=== PATIENT | male | born 1935 | race Caucasian/White ===

== ENCOUNTER 2018-03-15 17:06 | Inpatient (IN) | payer MEDICARE, BC ==
[2018-03-15 20:36] VITALS: BMI 26.9
[2018-03-15] MEDS ORDERED: Mag-Al 1200 mg/1200 mg/30 ML UDCUP PO PRN (20:55)
[2018-03-15] MEDS ORDERED: Acetaminophen 325 MG TAB PO PRN (20:55)
[2018-03-15] MEDS ORDERED: hydrALAZINE 20 MG/ML VIAL SLOW IVP PRN (20:55)
[2018-03-15] MEDS ORDERED: Benzonatate 100 MG CAP PO PRN (20:55)
[2018-03-15] MEDS: cefTRIAXone\\ROCEPHIN 1 GM in Sodium Chloride 0.9% 100 ML IVPB SCH (21:53)
[2018-03-15] MEDS: Azithromycin 500 MG in Sodium Chloride 0.9% 250 ML 250 ML IVPB SCH (22:10)
[2018-03-16 05:17] LABS: #Eosinphils 0.1 thou/uL (0.0-0.7); #Lymphocytes 0.7 thou/uL (1.20-3.40); #Monocytes 1.1 thou/uL (0.11-0.59); #Neutrophils 5.8 thou/uL (1.40-6.50); %Basophils 0.1 % (0.0-1.0); %Eosinophils 1.3 % (0.0-10.0); %Lymphocytes 8.9 % (21.0-51.0); %Monocytes 14.5 % (0.0-10.0); %Neutrophils 75.2 % (42.0-75.0); Hemoglobin 12.8 g/dL (14.0-18.0); Mean Corpuscular HGB CONC 34.1 g/dL (32.0-36.0); Mean Corpuscular Volume 96.9 fL (78.0-98.0); Mean Platelet Volume 8.7 fL (7.4-10.4); Platelet Count 151 thou/uL (130-400); RBC Distribution Width 12.7 % (11.5-14.5); Red Blood Cell (RBC) Count 3.86 mill/uL (4.70-6.10); White Blood Cell (WBC) Count 7.7 thou/uL (4.8-10.8)
[2018-03-16 05:32] LABS: Anion Gap 11 mmol/L (10-20); BUN (Urea Nitrogen) 19 mg/dL (8.4-25.7); Calc. Creatinine Clearance 93 mL/min (70-130); Calcium 9.1 mg/dL (7.8-10.44); Carbon Dioxide 23 mmol/L (23-31); Chloride 105 mmol/L (98-107); Estimated GFR-MDRD 87; Glucose 110 mg/dL (83-110); Potassium 3.5 mmol/L (3.5-5.1); Sodium 135 mmol/L (136-145)
[2018-03-16] MEDS: Levothyroxine Sodium 88 MCG TAB PO SCH (05:34)
--- NOTE | 2018-03-16 07:19 | HP ---
PRIMARY CARE PHYSICIAN: Dr. Ruth Ann Varghese. CHIEF COMPLAINT: Transfer for pneumonia. HISTORY OF PRESENT ILLNESS: Mr. Sanabria is a very pleasant 83-year-old gentleman that has a history of coronary artery disease. Also, has a history of BPH and a remote history of prostate cancer. He was in his usual state of health until several days ago he began having complaints of nausea, vomiti ng, and diarrhea. He also had a poor appetite and was feeling weak. He has a welfare eligibility interviewer, who general ly visits him daily and noticed that he looked a bit droopy and weak and basically could barely get a round without assistance. She was concerned and brought him to the emergency room in [place]. Ther e, he was evaluated and had a CT scan of the abdomen and pelvis. It was noted that there was no sign ificant intra-abdominal findings, but he had some findings of ground-glass infiltrate in the left low er lobe and was admitted for pneumonia. He was being treated there when it was noted that he became hypotensive as well as more hypoxic. His lactic acid was elevated at 3.3 and as a result there was c oncern that he was developing sepsis as a result of the pneumonia and he was [place] [facility]. Prior to transfer, he was given IV fluids and supplemental oxygen. Hi s blood pressure has since improved some, and the patient says that symptomatically he is actually fe eling better. REVIEW OF SYSTEMS: All systems are reviewed and are negative except for that mentioned in the histor y of present illness. PAST MEDICAL HISTORY: Significant for coronary artery disease, BPH, prostate cancer, and abdominal a ortic aneurysm. PAST SURGICAL HISTORY: He has had bypass surgery, prostate surgery, lumbar surgery, carpal tunnel frias rgery, and a cholecystectomy. ALLERGIES: PENICILLIN, which causes a rash. SOCIAL HISTORY: He is single. No children. His surrogate decision maker and medical power of attor vannessa is Talisha Varela. His code status is DNR. He is a former smoker, he quit in 1980. He smoke d for a total of about 50 years. He denies any alcohol use. FAMILY HISTORY: Significant for colon cancer in a sister and brother. Mother lived to be 96. Fathe r lived to be 89. CURRENT MEDICATIONS: Include atenolol 25 mg daily, levothyroxine 88 mcg daily, fenofibrate 150 mg da jonathan, aspirin 81 mg daily, fish oil 1200 mg daily, glucosamine 1500 mg daily, calcium 600 mg daily, B1 2, turmeric, and vitamin D. PHYSICAL EXAMINATION: GENERAL: He is alert and oriented. He appears to be in no acute distress. RECENT VITAL SIGNS: Blood pressure was 135/68, heart rate is around 86, respiratory rate of 16, and temperature is 99.6. HEENT: His pupils are equal, round, and reactive. Extraocular muscles are intact. Sclerae are anic teric. Throat: There is no erythema, no exudates. NECK: No adenopathy, no bruits. LUNGS: He has got some rales at the left base, very fine, almost inaudible, good breath sounds throu ghout. There was no wheezing or rhonchi. CARDIOVASCULAR: He has a normal S1 and S2. There is no S3 or S4. No murmurs, clicks, no rubs. ABDOMEN: Obese, it is soft, nontender, nondistended. Positive for bowel sounds. There is no reboun d or guarding. EXTREMITIES: He has got trace edema. There is no calf tenderness. There is no erythema. He has go t palpable dorsalis pedis pulses bilaterally. NEUROLOGIC: The exam is nonfocal. His muscle strength is 5/5 in both his upper and lower extremitie s. SKIN AND INTEGUMENT: There was no skin changes. No rash. LABORATORY DATA: Laboratory results were reviewed. His white blood cell count 11.3, hemoglobin 13.8 , hematocrit was 41.5, platelet count was 117. Sodium 131, potassium 4.1, CO2 is 17, BUN of 25, crea tinine 1.43, and glucose is 158. Lactic acid was 3.3, total bilirubin was 1.7. He had EKG by my drew frost is sinus rhythm, the rate was [address] wave changes. He had a chest x-ray to day and by my reading, he had some changes consistent with COPD with some hyperinflation and he did h ave some airspace density in the left base. There was no pleural effusion. ASSESSMENT: 1. This is a pleasant 83-year-old gentleman, who was admitted for pneumonia and transferred for our facility due to concerns for sepsis. He will be admitted to Telemetry. We will continue IV Rocephin and azithromycin. We will also continue gentle hydration as there is no known history of congestive heart failure and his proBNP was actually normal. We will likely repeat a chest x-ray in a couple o f days to assess for any significant radiographic changes such as an effusion. He will be placed on deep venous thrombosis prophylaxis. 2. Coronary artery disease. This appears to be clinically stable. He is on atenolol and aspirin, w hich will be continued. 3. Hypothyroidism. We will continue levothyroxine as previously ordered. 4. Benign prostatic hypertrophy and history of prostate cancer. We will monitor for signs of urinar y retention, which at this point is not evident.
[2018-03-16] MEDS: Enoxaparin Sodium 30 MG/0.3 ML SYRINGE SC SCH (08:59)
[2018-03-16] MEDS: Calcium Carbonate 600 MG TAB PO SCH (09:00)
[2018-03-16] MEDS: Atenolol 25 MG TAB PO SCH (09:00)
--- NOTE | 2018-03-16 10:42 | PDOC.PN ---
- Subjective Encounter Start Date: 03/16/18 Encounter Start Time: 10:40 Mr. Sanabria was seen today in follow-up of Pneumonia with sepsis. He says he feels better. He rested ok last night. He was able to eat all of his breakfast without any nausea. He has not had any diarrhea this morning. - Objective Resuscitation Status: Resuscitation Status DNR:Do Not Resuscitate MAR Reviewed: Yes Vital Signs & Weight: Vital Signs (12 hours) Temp Pulse Resp BP BP Pulse Ox 03/16/18 09:00 63 120/58 L 03/16/18 07:10 98.3 F 63 14 120/58 L 95 03/16/18 03:15 98 F 80 18 118/61 95 03/16/18 00:22 98.2 F 78 14 132/60 94 L Weight Weight 221 lb Result Diagrams: 03/16/18 04:49 03/16/18 04:49 Phys Exam - Physical Examination HEENT: PERRLA Respiratory: no wheezing, no rhonchi +rales at the left base, good air movement Cardiovascular: RRR, no significant murmur, no rub no gallop Gastrointestinal: soft, non-tender, no distention, positive bowel sounds Musculoskeletal: no edema, pulses present Neurological: non-focal Dx/Plan (1) Pneumonia, community acquired Code(s): J18.9 - PNEUMONIA, UNSPECIFIED ORGANISM Status: Acute Qualifiers: Laterality: left (2) Sepsis Code(s): A41.9 - SEPSIS, UNSPECIFIED ORGANISM Status: Resolved (3) Coronary artery disease Code(s): I25.10 - ATHSCL HEART DISEASE OF [place] CORONARY ARTERY W/O ANG PCTRS Status: Chronic (4) BPH (benign prostatic hyperplasia) Code(s): N40.0 - BENIGN PROSTATIC HYPERPLASIA WITHOUT LOWER URINRY TRACT SYMP Status: Chronic Qualifiers: Lower urinary tract symptom presence: symptoms absent Qualified Code(s): N40.0 - Benign prostatic hyperplasia without lower urinary tract symptoms - Plan * Pneumonia- improved. He has a brief episode of hypotension, and hypoxemia, which has since resolved. continue Rocephin and Azithromycin. Will re-check an Xray of the chest in the AM * Sepsis- resolved * CAD- stable . * BPH- stable
[2018-03-16] MEDS: cefTRIAXone\\ROCEPHIN 1 GM in Sodium Chloride 0.9% 100 ML IVPB SCH (21:28)
[2018-03-16] MEDS: Azithromycin 500 MG in Sodium Chloride 0.9% 250 ML 250 ML IVPB SCH (21:28)
[2018-03-17] MEDS: Levothyroxine Sodium 88 MCG TAB PO SCH (05:39)
[2018-03-17 05:41] LABS: #Eosinphils 0.2 thou/uL (0.0-0.7); #Lymphocytes 1.1 thou/uL (1.20-3.40); #Monocytes 0.7 thou/uL (0.11-0.59); #Neutrophils 4.6 thou/uL (1.40-6.50); %Basophils 0.2 % (0.0-1.0); %Eosinophils 3.1 % (0.0-10.0); %Lymphocytes 16.2 % (21.0-51.0); %Neutrophils 70.5 % (42.0-75.0); Hemoglobin 12.8 g/dL (14.0-18.0); Mean Corpuscular Volume 96.9 fL (78.0-98.0); Mean Platelet Volume 8.9 fL (7.4-10.4); Platelet Count 180 thou/uL (130-400); RBC Distribution Width 12.7 % (11.5-14.5); Red Blood Cell (RBC) Count 4.02 mill/uL (4.70-6.10); White Blood Cell (WBC) Count 6.5 thou/uL (4.8-10.8)
[2018-03-17 05:49] LABS: Anion Gap 12 mmol/L (10-20); BUN (Urea Nitrogen) 15 mg/dL (8.4-25.7); Calc. Creatinine Clearance 108 mL/min (70-130); Calcium 9.2 mg/dL (7.8-10.44); Carbon Dioxide 23 mmol/L (23-31); Chloride 106 mmol/L (98-107); Estimated GFR-MDRD Greater than 90; Glucose 97 mg/dL (83-110); Potassium 3.7 mmol/L (3.5-5.1); Sodium 137 mmol/L (136-145)
[2018-03-17] MEDS: Atenolol 25 MG TAB PO SCH (08:58)
[2018-03-17] MEDS: Enoxaparin Sodium 30 MG/0.3 ML SYRINGE SC SCH (08:58)
[2018-03-17] MEDS ORDERED: Atorvastatin Calcium 40 MG TAB PO SCH (09:00)
[2018-03-17] MEDS ORDERED: Cyanocobalamin (Vitamin B-12) 1,000 MCG TAB PO SCH (09:00)
[2018-03-17] MEDS ORDERED: Fenofibrate Nanocrystallized 145 MG TAB PO SCH (09:00)
[2018-03-17] MEDS ORDERED: Fish Oil 1,000 MG CAP PO SCH (09:00)
[2018-03-17] MEDS: Calcium Carbonate 600 MG TAB PO SCH (09:48)
--- NOTE | 2018-03-17 09:49 | RAD ---
PA AND LATERAL VIEWS OF CHEST: Date: 03/17/18 HISTORY: Pneumonia. FINDINGS: Comparison made with exam of 03/15/18. There are changes of median sternotomy. The heart size is normal. The aorta is tortuous. There is an infiltrate at the left lung base. No pneumothoraces or large effusions are seen. 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 IMPRESSION: Findings are suspicious for left basilar pneumonia. POS: [facility]
--- NOTE | 2018-03-17 12:17 | PDOC.PN ---
- Subjective Encounter Start Date: 03/17/18 Encounter Start Time: 12:13 Mr. Sanabria was seen today in follow-up of Pneumonia with sepsis. He was stiing up in a chair, and says he feel much better. Appetite has improved, and he is breathing fine. He walked some in the jones without difficulty. - Objective Resuscitation Status: Resuscitation Status DNR:Do Not Resuscitate MAR Reviewed: Yes Vital Signs & Weight: Vital Signs (12 hours) Temp Pulse Resp BP BP Pulse Ox 03/17/18 08:58 59 L 153/71 H 03/17/18 08:00 97.6 F 59 L 16 153/71 H 93 L 03/17/18 03:06 97.7 F 64 18 142/67 H 95 Weight Admit Weight 221 lb Weight 218 lb I&O: 03/16/18 03/17/18 03/18/18 06:59 06:59 06:59 Intake Total 1456 Output Total 500 Balance 956 Result Diagrams: 03/17/18 04:59 03/17/18 04:59 Phys Exam - Physical Examination HEENT: PERRLA Respiratory: no wheezing, no rhonchi + rales at the left base Cardiovascular: RRR Gastrointestinal: soft, non-tender, no distention Musculoskeletal: no edema Dx/Plan (1) Pneumonia, community acquired Code(s): J18.9 - PNEUMONIA, UNSPECIFIED ORGANISM Status: Acute Qualifiers: Laterality: left (2) Sepsis Code(s): A41.9 - SEPSIS, UNSPECIFIED ORGANISM Status: Resolved (3) Coronary artery disease Code(s): I25.10 - ATHSCL HEART DISEASE OF [place] CORONARY ARTERY W/O ANG PCTRS Status: Chronic (4) BPH (benign prostatic hyperplasia) Code(s): N40.0 - BENIGN PROSTATIC HYPERPLASIA WITHOUT LOWER URINRY TRACT SYMP Status: Chronic Qualifiers: Lower urinary tract symptom presence: symptoms absent Qualified Code(s): N40.0 - Benign prostatic hyperplasia without lower urinary tract symptoms - Plan * Pneumonia- sepsis has resolved, and he is improving with clinically regarding the pneumonia * He is stable for discharge home
[2018-03-17 16:00] VITALS: BP 131/62; TEMP 97.7
--- NOTE | 2018-03-17 19:17 | DIS ---
PRIMARY CARE PHYSICIAN: Ruth Ann Varghese D.O. ADMISSION DATE: 03/15/2018. DISCHARGE DATE: 03/17/2018. DISCHARGE DISPOSITION: Back to [facility]. DISCHARGE DIAGNOSES: 1. Community-acquired pneumonia. 2. Sepsis secondary to community-acquired pneumonia. 3. Hypertension. 4. Coronary artery disease. 5. Benign prostatic hypertrophy. DISCHARGE MEDICATIONS: Include Rocephin 1 gram IV every day, azithromycin 500 mg IV daily, levothyro xine 88 mcg daily, fenofibrate 160 mg daily, vitamin D3 1000 units daily, vitamin B12 2500 mcg daily, omega 3 fatty acids and fish oil 1 capsule daily, Tylenol Extra Strength 650 mg daily, Lovenox 30 mg subcu daily, atenolol 25 mg daily, atorvastatin 40 mg daily, aspirin 81 mg a day. CODE STATUS: DNR. ALLERGIES: PENICILLIN. HOSPITAL COURSE: Mr. Sanabria is a pleasant 83-year-old gentleman who was originally admitted to [facility]. He was diagnosed with pneumonia. He was started on IV antibiotics for comm unity-acquired pneumonia and shortly after being admitted, he became hypotensive and hypoxic. There was concern that he could decompensate further and he was transferred to our facility. He was given IV fluid resuscitation and actually remained stable since then and continued to improve. He has impr allyson with regards to his appetite. He has been ambulating. He feels stronger. The diarrhea that he originally presented with is beginning to resolve and as such, he will be transferred back to [facility] to a swing bed for some physical therapy and continued antibiotics prior to being di scharged home.
[2018-03-17] MEDS: cefTRIAXone\\ROCEPHIN 1 GM in Sodium Chloride 0.9% 100 ML IVPB SCH (21:54)
[2018-03-17] MEDS: Azithromycin 500 MG in Sodium Chloride 0.9% 250 ML 250 ML IVPB SCH (21:55)
== END 2018-03-17 21:40 | DRG 871 ==
LOC: 2NO 18:58
PROVIDERS: ADMIT Internal Medicine; ATTEND Internal Medicine
DX: A41.9 Sepsis, unspecified organism (principal); J18.9 Pneumonia, unspecified organism; Z95.1 Presence of aortocoronary bypass graft; N40.0 Benign prostatic hyperplasia without lower urinary tract symptoms; Z85.46 Personal history of malignant neoplasm of prostate; I71.4 Abdominal aortic aneurysm, without rupture; I95.9 Hypotension, unspecified; I25.10 Atherosclerotic heart disease of native coronary artery without angina pectoris; Z88.0 Allergy status to penicillin; Z66 Do not resuscitate; Z87.891 Personal history of nicotine dependence; Z79.899 Other long term (current) drug therapy; R09.02 Hypoxemia
CPT/HCPCS: 36415; 71046; 80048; 85025; A4216; G8978-GP-CL; G8979-GP-CJ; G8987-GO-CK; G8988-GO-CI; J0456; J0696; J1650; J7050

== ENCOUNTER 2022-06-03 06:13 | Day surgery (SDC) | payer MEDICARE, BC ==
[2022-06-03] MEDS ORDERED: Iopamidol 30 ML ONE (07:10)
[2022-06-03] MEDS ORDERED: fentaNYL PF 100 MCG/2 ML SYRINGE ONE (08:06)
[2022-06-03] MEDS ORDERED: SUGAMMADEX SODIUM 200 MG/2 ML VIAL ONE (08:08)
[2022-06-03] MEDS ORDERED: Dexamethasone 20 MG/5 ML VIAL ONE (08:30)
[2022-06-03] MEDS ORDERED: Rocuronium Bromide 10 MG/ML (10ML VIAL) ONE (08:30)
[2022-06-03] MEDS ORDERED: NEOSTIGMINE 3 MG/3 ML SYR 3 MG/3 ML SYRINGE ONE (08:30)
[2022-06-03] MEDS ORDERED: PROPOFOL 200 MG/20 ML VIAL ONE (08:30)
[2022-06-03] MEDS ORDERED: Ondansetron PF 4 MG/2 ML Vial ONE (08:30)
[2022-06-03] MEDS ORDERED: GLYCOPYRROLATE/PF 0.2 MG/ML VIAL ONE (08:30)
[2022-06-03] MEDS ORDERED: ePHEDrine 50 MG/ML VIAL ONE (08:30)
== END 2022-06-03 11:00 | disposition home or self-care (01) ==
LOC: SDC/OP 06:13
PROVIDERS: ATTEND Urology
PROC: 0T768DZ Dilation of Right Ureter with Intraluminal Device, Via Natural or Artificial Opening Endoscopic (ICD-10-PCS; principal; 2022-06-03)
DX: N13.2 Hydronephrosis with renal and ureteral calculous obstruction (principal); I10 Essential (primary) hypertension; I25.10 Atherosclerotic heart disease of native coronary artery without angina pectoris; Z88.0 Allergy status to penicillin
CPT/HCPCS: 52332; 74420; 87086; C2617; J3490; J1100; J2405; J2704; Q9967

== ENCOUNTER 2022-06-11 07:57 | Day surgery (SDC) | payer MEDICARE, BC ==
[2022-06-10 12:35] VITALS: BMI 26.9
[2022-06-11] MEDS ORDERED: Famotidine/PF 20 mg/2ml Vial ONE (08:43)
[2022-06-11] MEDS ORDERED: SUGAMMADEX SODIUM 200 MG/2 ML VIAL ONE (08:43)
[2022-06-11] MEDS ORDERED: Fentanyl 100 MCG/2 ML VIAL ONE (09:20)
[2022-06-11] MEDS ORDERED: Levofloxacin 500 mg/D5W 100 ml Premix Bag ONE (10:17)
[2022-06-11] MEDS ORDERED: Ondansetron PF 4 MG/2 ML Vial ONE (10:28)
[2022-06-11] MEDS ORDERED: Lidocaine 1% PF 5 ML VIAL ONE (10:28)
[2022-06-11] MEDS ORDERED: PROPOFOL 200 MG/20 ML VIAL ONE (10:28)
[2022-06-11] MEDS ORDERED: ePHEDrine 50 MG/ML VIAL ONE (10:28)
[2022-06-11] MEDS ORDERED: Metoclopramide HCl 10 MG/2 ML VIAL ONE (10:28)
[2022-06-11] MEDS ORDERED: Iopamidol 45 ML ONE (10:46)
[2022-06-11] MEDS ORDERED: HYDROcodone/Acetaminophen 5/325 mg Tablet ONE (14:29)
== END 2022-06-11 15:07 | disposition home or self-care (01) ==
LOC: SDC 07:57
PROVIDERS: ATTEND Urology
PROC: 0TC68ZZ Extirpation of Matter from Right Ureter, Via Natural or Artificial Opening Endoscopic (ICD-10-PCS; principal; 2022-06-11)
PROC: 0T768DZ Dilation of Right Ureter with Intraluminal Device, Via Natural or Artificial Opening Endoscopic (ICD-10-PCS; 2022-06-11)
DX: N20.2 Calculus of kidney with calculus of ureter (principal); Z88.0 Allergy status to penicillin; Z95.1 Presence of aortocoronary bypass graft
CPT/HCPCS: 74420; 82365; 88300; C1769; C2617; J1956; J2405; J2704; J2765; J3010; J3490; Q9967; S0028

== ENCOUNTER 2023-07-22 08:42 | Day surgery (SDC) | payer MEDICARE, BC ==
[2023-07-21 11:14] VITALS: BMI 29.0
[2023-07-22] MEDS ORDERED: Iopamidol 30 ML ONE (10:11)
[2023-07-22] MEDS ORDERED: LevoFLOXacin D5W 500 mg (100 mL) BAG ONE (10:55)
[2023-07-22] MEDS ORDERED: PROPOFOL 20 ML ONE (11:06)
[2023-07-22] MEDS ORDERED: fentaNYL 50 mcg/mL 1 mL Vial ONE (12:11)
[2023-07-22] MEDS ORDERED: Lidocaine 1% PF 5 ML VIAL ONE (12:12)
== END 2023-07-22 15:05 | disposition home or self-care (01) ==
LOC: SDC 08:42
PROVIDERS: ATTEND Urology
PROC: 0TH98YZ Insertion of Other Device into Ureter, Via Natural or Artificial Opening Endoscopic (ICD-10-PCS; principal; 2023-07-22)
DX: N13.2 Hydronephrosis with renal and ureteral calculous obstruction (principal); I25.10 Atherosclerotic heart disease of native coronary artery without angina pectoris; I10 Essential (primary) hypertension; E78.5 Hyperlipidemia, unspecified; Z88.0 Allergy status to penicillin; Z95.1 Presence of aortocoronary bypass graft; Z79.899 Other long term (current) drug therapy
CPT/HCPCS: 52332; 74420; J3010; C2617; J1956; J2704; Q9967

== ENCOUNTER 2023-07-30 10:03 | Outpatient (CLI) | payer MEDICARE, BC ==
[2023-07-30 11:22] LABS: Hematocrit 46.3 % (38.8-50.0); Hemoglobin 15.7 g/dL (13.5-17.5); Mean Corpuscular HGB CONC 33.9 g/dL (32.0-36.0); Mean Corpuscular Hemoglobin 32.7 pg (27.0-33.0); Mean Corpuscular Volume 96.5 fl (81.2-95.1); Mean Platelet Volume 10.6 fl (7.4-10.4); Platelet Count 214 10x3/uL (150-450); RBC Distribution Width 12.6 % (11.5-14.5); White Blood Cell (WBC) Count 9.1 10x3/uL (3.5-10.5)
[2023-07-30 11:52] LABS: Anion Gap 12 mmol/L (10-20); BUN (Urea Nitrogen) 25 mg/dL (8.4-25.7); Calc. Creatinine Clearance 0 mL/min (70-130); Calcium 10.1 mg/dL (7.8-10.44); Carbon Dioxide 23 mmol/L (23-31); Chloride 108 mmol/L (98-107); Estimated GFR 82; Glucose 105 mg/dL (83-110); Potassium 4.5 mmol/L (3.5-5.1); Sodium 138 mmol/L (136-145)
[2023-07-30 12:09] LABS: INR-International Normal Ratio 1.1; PTT 28.5 sec (22.0-33.0); Prothrombin Time 11.4 sec (9.5-12.1)
== END 2023-07-30 10:04 | disposition home or self-care (01) ==
LOC: LABBT 10:03
PROVIDERS: ATTEND Urology
DX: Z01.812 Encounter for preprocedural laboratory examination (principal); N20.2 Calculus of kidney with calculus of ureter
CPT/HCPCS: 80048; 85027; 85610; 85730; 87086

== ENCOUNTER 2023-08-04 08:57 | Day surgery (SDC) | payer MEDICARE, BC ==
[2023-07-30 10:41] VITALS: BMI 29.0
[2023-08-04] MEDS ORDERED: Famotidine/PF 20 mg/2ml Vial ONE (09:11)
[2023-08-04] MEDS ORDERED: LevoFLOXacin D5W 500 mg (100 mL) BAG ONE (11:42)
[2023-08-04] MEDS ORDERED: Iopamidol 30 ML ONE (12:21)
[2023-08-04] MEDS ORDERED: Lidocaine 2% PF 5 ML VIAL ONE (12:31)
[2023-08-04] MEDS ORDERED: fentaNYL 50 mcg/mL 1 mL Vial ONE (12:31)
[2023-08-04] MEDS ORDERED: PROPOFOL 20 ML ONE (12:31)
[2023-08-04] MEDS ORDERED: PHENYLEPHRINE-NS 100 MCG/ML 10 ML SYRINGE ONE (12:39)
[2023-08-04] MEDS ORDERED: Rocuronium Bromide 10 MG/ML (10ML VIAL) ONE (12:48)
[2023-08-04] MEDS ORDERED: SUGAMMADEX SODIUM 200 MG/2 ML VIAL ONE (13:44)
== END 2023-08-04 15:52 | disposition home or self-care (01) ==
LOC: SDC 08:57
PROVIDERS: ATTEND Urology
PROC: 0TC18ZZ Extirpation of Matter from Left Kidney, Via Natural or Artificial Opening Endoscopic (ICD-10-PCS; principal; 2023-08-04)
PROC: 0TC78ZZ Extirpation of Matter from Left Ureter, Via Natural or Artificial Opening Endoscopic (ICD-10-PCS; 2023-08-04)
PROC: 0T778DZ Dilation of Left Ureter with Intraluminal Device, Via Natural or Artificial Opening Endoscopic (ICD-10-PCS; 2023-08-04)
DX: N20.2 Calculus of kidney with calculus of ureter (principal); I25.10 Atherosclerotic heart disease of native coronary artery without angina pectoris; I10 Essential (primary) hypertension; E78.5 Hyperlipidemia, unspecified; E03.9 Hypothyroidism, unspecified; Z88.0 Allergy status to penicillin; Z95.1 Presence of aortocoronary bypass graft; Z79.890 Hormone replacement therapy; Z79.899 Other long term (current) drug therapy; Z79.82 Long term (current) use of aspirin; Z90.49 Acquired absence of other specified parts of digestive tract
CPT/HCPCS: 52356; 74420; J3010; C1747; C1769; C1874; J1956; J2001; J2704; Q9967; S0028